=== PATIENT | male | born 1995 | race Caucasian/White ===

== ENCOUNTER 2019-01-25 00:52 | Emergency (ER) | payer MEDICAID ==
[~2019-01-25] VITALS: Ht 182.9 cm; Wt 88.0 kg
[2019-01-25 00:57] VITALS: BP 146/76
== END 2019-01-25 05:04 | disposition left against medical advice (07) ==
LOC: ER 00:52
DX: Z53.21 Procedure and treatment not carried out due to patient leaving prior to being seen by health care provider (principal)

== ENCOUNTER 2019-07-05 20:24 | Emergency (ER) | payer MEDICAID ==
[~2019-07-05] VITALS: Ht 182.9 cm; Wt 90.0 kg
[2019-07-05] MEDS ORDERED: IBUPROFEN 600MG TABLET PO ONE (23:30)
[2019-07-06 00:25] VITALS: BP 129/66
== END 2019-07-06 01:11 | disposition home or self-care (01) ==
LOC: ER 20:24
DX: S40.011A Contusion of right shoulder, initial encounter (principal); V00.831A Fall from motorized mobility scooter, initial encounter; Y93.89 Activity, other specified; Y92.488 Other paved roadways as the place of occurrence of the external cause
CPT/HCPCS: 29240; 73030; 99283